=== PATIENT | female | born 1980 | race Caucasian/White ===

== ENCOUNTER 2017-12-27 12:41 | Emergency (ER) | payer OTHER ==
[2017-12-27] MEDS ORDERED: NA CHLORIDE 0.9% 1,000 ML ONE ×2 (13:03→13:53)
[2017-12-27 13:20] LABS: Absolute Lymphocytes (CBC) 2.5 K/uL (0.7-4.9); Absolute Monocytes 0.5 K/uL (0.1-1.3); Absolute Neutrophil 2.4 K/uL (1.8-8.0); Basophils % 0.8 % (0-1.3); Eosinophils % 2.8 % (0-4.4); Hematocrit 39.1 % (36.0-45.0); Lymphocytes % 44.5 % (15.3-44.8); MCH 28.9 pg (27.0-35.0); MCV 86.7 fL (80-100); MPV 8.7 fL (7.6-11.3); Monocytes % 8.2 % (3.3-12.3); RBC Red Blood Cell Count 4.51 M/uL (3.86-4.86)
[2017-12-27 13:29] LABS: Potassium 3.7 mEq/L (3.6-5.0)
[2017-12-27 13:32] LABS: Albumin 3.8 g/dL (3.2-5.5); Bilirubin Total 0.3 mg/dL (0.3-1.2); Protein, Total 6.9 g/dL (6.0-8.3)
[2017-12-27 13:35] LABS: Urine Bacteria <20 /HPF (<20); Urine Culture Reflex Order NOT NEEDED; Urine RBC <5 /HPF (NONE SEEN)
[2017-12-27 13:39] LABS: Urine Blood NEGATIVE (NEG); Urine Glucose NEGATIVE (NEG); Urine Protein NEGATIVE (NEG); Urine Specific Gravity 1.025 (1.005-1.030); Urine pH 5.5 (5.0-7.0)
--- NOTE | 2017-12-27 15:05 | EDPHYS ---
Physician Documentation [facility] Name: Melissa Berrios Age: 37 yrs Sex: Female : 1980 Arrival Date: 12/27/2017 Time: 12:42 Bed 8 Private MD: ED Physician Jae Benjamin HPI: 12/27 14:34 This 37 yrs old Female presents to ER via Ambulatory with complaints of Heat gs Exposure. 14:34 The patient presents to the emergency department with weakness of the entire body, gs generalized weakness. Onset: The symptoms/episode began/occurred yesterday. Context: working outside overheated, generalized muscle ache dark urine ? fever. Associated signs and symptoms: Pertinent negatives: altered mental status. Severity of symptoms: At their worst the symptoms were severe in the emergency department the symptoms have improved markedly. Patient's baseline: Neuro: alert and fully oriented, Motor: no deficits, Ambulation: walks without assistance, Speech: normal. 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 - Social history:: Smoking status: Patient uses tobacco products, smokes one-half pack cigarettes per day, Patient/guardian denies using alcohol, street drugs. - Ebola Screening: : Patient negative for fever greater than or equal to 101.5 degrees Fahrenheit, and additional compatible Ebola Virus Disease symptoms Patient denies exposure to infectious person Patient denies travel to an Ebola-affected area in the 21 days before illness onset No symptoms or risks identified at this time. ROS: 14:34 All other systems are negative. gs Exam: 14:34 Head/Face: Normocephalic, atraumatic. Eyes: Pupils equal round and reactive to light, gs extra-ocular motions intact. Lids and lashes normal. Conjunctiva and sclera are non-icteric and not injected. Cornea within normal limits. Periorbital areas with no swelling, redness, or edema. ENT: Nares patent. No nasal discharge, no septal abnormalities noted. Tympanic membranes are normal and external auditory canals are clear. Oropharynx with no redness, swelling, or masses, exudates, or evidence of obstruction, uvula midline. Mucous membranes moist. Neck: Trachea midline, no thyromegaly or masses palpated, and no cervical lymphadenopathy. Supple, full range of motion without nuchal rigidity, or vertebral point tenderness. No Meningismus. Chest/axilla: Normal chest wall appearance and motion. Nontender with no deformity. No lesions are appreciated. Cardiovascular: Regular rate and rhythm with a normal S1 and S2. No gallops, murmurs, or rubs. Normal PMI, no JVD. No pulse deficits. Respiratory: Lungs have equal breath sounds bilaterally, clear to auscultation and percussion. No rales, rhonchi or wheezes noted. No increased work of breathing, no retractions or nasal flaring. Abdomen/GI: Soft, non-tender, with normal bowel sounds. No distension or tympany. No guarding or rebound. No evidence of tenderness throughout. Back: No spinal tenderness. No costovertebral tenderness. Full range of motion. Skin: Warm, dry with normal turgor. Normal color with no rashes, no lesions, and no evidence of cellulitis. MS/ Extremity: Pulses equal, no cyanosis. Neurovascular intact. Full, normal range of motion. Neuro: Awake and alert, GCS 15, oriented to person, place, time, and situation. Cranial nerves II-XII grossly intact. Motor strength 5/5 in all extremities. Sensory grossly intact. Cerebellar exam normal. Normal gait. 14:34 Constitutional: The patient appears alert, awake. Vital Signs: 12:46 BP 122 / 85; Pulse 92; Resp 18; Temp 99.9(O); Pulse Ox 98% on R/A; Weight 72.57 kg; ch Height 5 ft. 4 in. (162.56 cm); Pain 0/10; 15:17 BP 126 / 92; Pulse 79; Resp 18; Pulse Ox 99% ; sv 12:46 Body Mass Index 27.46 (72.57 kg, 162.56 cm) ch MDM: 12:57 Patient medically screened. gs 14:34 Data reviewed: vital signs, nurses notes. Response to treatment: the patient's symptoms gs have resolved after treatment, patient is well hydrated. and as a result, I will discharge patient. ED course: ddx dehydration, rhabdo, electrolyte abnormality. 12/27 12:58 Order name: CBC with Diff; Complete Time: 13:32 12/27 12:58 Order name: CMP; Complete Time: 13:43 12/27 12:58 Order name: Urine Microscopic Only; Complete Time: 13:43 12/27 12:58 Order name: CPK; Complete Time: 13:43 12/27 13:30 Order name: Urine Dipstick--Ancillary (enter results); Complete Time: 13:43 12/27 13:30 Order name: Urine --Ancillary (enter results); Complete Time: 13:43 12/27 12:58 Order name: Urine Test (obtain specimen); Complete Time: 13:24 12/27 12:58 Order name: Urine Dipstick-Ancillary (obtain specimen); Complete Time: 13:24 Administered Medications: 13:13 Drug: NS 0.9% 1000 ml Route: IV; Rate: 1 bolus; Site: right antecubital; sv 14:15 Follow up: Response: No adverse reaction; IV Status: Completed infusion; IV Intake: sv 1000ml 14:15 Drug: NS 0.9% 1000 ml Route: IV; Rate: 1 bolus; Site: right antecubital; sg 15:00 Follow up: Response: No adverse reaction; IV Status: Completed infusion; IV Intake: sv 1000ml Disposition: 12/27/17 15:04 Discharged to Home. Impression: Heat exhaustion, unspecified, Dehydration. - Condition is Stable. - Discharge Instructions: Heat-Related Illness, Dehydration, Adult, [id number]. - Work release form, Medication Reconciliation Form, Thank You Letter, Antibiotic Education, Prescription Opioid Use form. - Follow up: Private Physician; When: 2 - 3 days; Reason: Re-evaluation by your physician. Signatures: Dispatcher MedHo Carolina Michaels RN RN ch Verde, Stephanie, RN RN sv Gay, Steven, RN RN sg Starr, Gregory, MD MD gs Corrections: (The following items were deleted from the chart) 15:18 15:04 12/27/2017 15:04 Discharged to Home. Impression: Heat exhaustion, unspecified; sv Dehydration. Condition is Stable. Forms are Medication Reconciliation Form, Thank You Letter, Antibiotic Education, Prescription Opioid Use. Follow up: Private Physician; When: 2 - 3 days; Reason: Re-evaluation by your physician. gs
--- NOTE | 2017-12-27 15:05 | ER ---
Nurse's Notes [facility] Name: Melissa Berrios Age: 37 yrs Sex: Female : 1980 Arrival Date: 12/27/2017 Time: 12:42 Bed 8 Private MD: Diagnosis: Heat exhaustion, unspecified;Dehydration Presentation: 12/27 12:45 Presenting complaint: Patient states: I think I got overheated yesterday. 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 my skin feels like its on fire and I don't feel very good. denies nvd or LOPEZ. Transition of care: patient was not received from another setting of care. Onset of symptoms was December 26, 2017. Risk Assessment: Do you want to hurt yourself or someone else? Patient reports no desire to harm self or others. Initial Sepsis Screen: Does the patient meet any 2 criteria? No. Patient's initial sepsis screen is negative. Does the patient have a suspected source of infection? No. Patient's initial sepsis screen is negative. Care prior to arrival: ice pack. 12:45 Method Of Arrival: Ambulatory 12:45 Acuity: ZOE 4 Triage Assessment: 12:46 General: Appears in no apparent distress. comfortable, Behavior is calm, cooperative, ch appropriate for age. Pain: Denies pain. Derm: Skin is intact, Skin is diaphoretic, Skin is normal. 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 - Social history:: Smoking status: Patient uses tobacco products, smokes one-half pack cigarettes per day, Patient/guardian denies using alcohol, street drugs. - Ebola Screening: : Patient negative for fever greater than or equal to 101.5 degrees Fahrenheit, and additional compatible Ebola Virus Disease symptoms Patient denies exposure to infectious person Patient denies travel to an Ebola-affected area in the 21 days before illness onset No symptoms or risks identified at this time. Screenin:10 Abuse screen: Denies threats or abuse. Denies injuries from another. Nutritional sv screening: No deficits noted. Tuberculosis screening: No symptoms or risk factors identified. Fall Risk None identified. Assessment: 13:10 General: Appears in no apparent distress. comfortable, well developed, Behavior is sv calm, cooperative, appropriate for age. Pain: Denies pain. Neuro: Level of Consciousness is awake, alert, obeys commands, Oriented to person, place, time, situation, Moves all extremities. Full function Gait is steady, Speech is normal. Respiratory: Respiratory effort is even, unlabored, Respiratory pattern is regular, symmetrical. Derm: Skin is normal, Skin temperature is warm Reports "feeling hot". 15:17 Reassessment: Patient appears in no apparent distress at this time. Patient and/or sv family updated on plan of care and expected duration. Pain level reassessed. Patient is alert, oriented x 3, equal unlabored respirations, skin warm/dry/pink. Patient states feeling better. Patient states symptoms have improved. Vital Signs: 12:46 BP 122 / 85; Pulse 92; Resp 18; Temp 99.9(O); Pulse Ox 98% on R/A; Weight 72.57 kg; Height 5 ft. 4 in. (162.56 cm); Pain 0/10; 15:17 BP 126 / 92; Pulse 79; Resp 18; Pulse Ox 99% ; sv 12:46 Body Mass Index 27.46 (72.57 kg, 162.56 cm) ED Course: 12:42 Patient arrived in ED. as 12:46 Triage completed. 12:46 Arm band placed on left wrist. Patient placed in an exam room, on a stretcher. 12:50 Jae Benjamin MD is Attending Physician. 12:51 Loan Musa RN is Primary Nurse. sv 13:10 Patient has correct armband on for positive identification. Bed in low position. Call sv light in reach. Adult w/ patient. Pulse ox on. NIBP on. Door closed. Head of bed elevated. 13:13 Initial lab(s) drawn, by me, sent to lab. Inserted saline lock: 20 gauge in right sv antecubital area, using aseptic technique. Blood collected. Flushed right antecubital with 5 ml normal saline. 13:26 Awaiting lab results. sv 15:17 No provider procedures requiring assistance completed. IV discontinued, intact, sv bleeding controlled, No redness/swelling at site. Pressure dressing applied. Administered Medications: 13:13 Drug: NS 0.9% 1000 ml Route: IV; Rate: 1 bolus; Site: right antecubital; sv 14:15 Follow up: Response: No adverse reaction; IV Status: Completed infusion; IV Intake: sv 1000ml 14:15 Drug: NS 0.9% 1000 ml Route: IV; Rate: 1 bolus; Site: right antecubital; sg 15:00 Follow up: Response: No adverse reaction; IV Status: Completed infusion; IV Intake: sv 1000ml Intake: 14:15 IV: 1000ml; Total: 1000ml. sv 15:00 IV: 1000ml; Total: 2000ml. sv Outcome: 15:04 Discharge ordered by . 15:17 Discharged to home ambulatory, with family. sv 15:17 Condition: stable 15:17 Discharge instructions given to patient, Instructed on discharge instructions, follow up and referral plans. Demonstrated understanding of instructions, follow-up care. 15:18 Patient left the ED. sv Signatures: Carolina Mckeon RN RN Loan Musa RN RN sv Gay, Steven, RN RN sg Martinez, Amelia as Starr, Gregory, MD MD gs
== END 2017-12-27 15:18 | disposition home or self-care (01) ==
LOC: ER 12:41
DX: E86.0 Dehydration (principal); F17.210 Nicotine dependence, cigarettes, uncomplicated
CPT/HCPCS: 36415; 80053; 81003; 81015; 81025; 82550; 85025; 96360; 96361; 99284; J7030

== ENCOUNTER 2020-01-12 19:34 | Emergency (ER) | payer OTHER ==
--- OUTSIDE RECORDS SUMMARY | 2020-01-12 19:38 | XMS REPORT | Summary of Care ---
:1980 Author Organization [facility] - [facility] Address [address] [place] [id number] Care Team Providers Name Role Phone Pcp, Patient Does Not Have A Primary Care Provider +[id number] Reason for Referral (Routine) Status Reason Specialty Diagnoses / Referred By Referred To Procedures Contact Contact New Request IM-CARDIOVASCULA Diagnoses Chest pain, unspecified type Chacho Godfrey R DISEASE Procedures Discharge Follow-Up: Specialty Service IM-CARDIOVASCULAR DISEASE; 3-[address] [place] [address] [address] [place] [address] Radiology Services (STAT) Status Reason Specialty Diagnoses / Referred By Referred To Procedures Contact Contact New Request Diagnostic Diagnoses Chest pain, unspecified type Chacho Godfrey Radiology Procedures Chest [address] [place] [address] [address] [place] [address] Reason for Visit Reason Comments Chest Pain Auth/Cert Status Reason Specialty Diagnoses / Referred By Referred To Procedures Contact Contact Emergency Medicine Diagnoses CHEST PAIN [facility] [address] [place] [address] Fax: Encounter Details Date Type Department Care Team Description 01/08/2020 Emergency ADC-Emergency Chacho Godfrey MD Chest pain, Department [address] [place] [address] unspecified type [address] [facility] [address] (Primary Dx) [place] [address] [place], [place] [id number] Allergies No Known Allergiesdocumented as of this encounter (statuses as of 01/08/2020) Medications Medication Sig Dispensed Refills Start Date End Date Status oseltamivir (TAMIFLU) Take 1 capsule by 10 capsule 0 7 Active 75 mg capsule mouth 2 (two) times daily. loratadine-pseudoephed Take 1 tablet by 10 tablet 0 07/14/2017 Active rine (CLARITIN-D 24 mouth daily. HOUR) 10-240 mg per 24 hr tablet documented as of this encounter (statuses as of 01/08/2020) Active Problems Not on filedocumented as of this encounter (statuses as of 01/08/2020) Social History Tobacco Use Types Packs/Day Years Used Date Never Smoker Smokeless Tobacco: Never Used Alcohol Use Drinks/Week oz/Week Comments Never Alcohol Habits Answer Date Recorded How often do you have a drink containing alcohol? Never 02/04/2019 How many drinks containing alcohol do you have on a typical Not asked day when you are drinking? How often do you have six or more drinks on one occasion? No t asked Sex Assigned at Date Recorded Not on file Job Start Date Occupation Industry Not on file Not on file Not on file Travel History Travel Start Travel End No recent travel history available. COVID-19 Exposure Response Date Recorded In the last month, have you been in contact with No / Unsure 01/08/2020 12:53 AM CDT someone who was confirmed or suspected to have Coronavirus / COVID-19? documented as of this encounter Last Filed Vital Signs Vital Sign Reading Time Taken Comments Blood Pressure 110/69 01/08/2020 3:00 AM CDT Pulse 85 01/08/2020 3:00 AM CDT Temperature 36.1 C (96.9 F) 01/08/2020 12:51 AM CDT Respiratory Rate 18 01/08/2020 3:00 AM CDT Oxygen Saturation 99% 01/08/2020 3:00 AM CDT Inhaled Oxygen Concentration - - Weight 80.3 kg (177 lb) 01/08/2020 12:52 AM CDT Height 162.6 cm (5' 4") 01/08/2020 12:51 AM CDT Body Mass Index 30.38 01/08/2020 12:51 AM CDT documented in this encounter Discharge Instructions InstructionsChacho Godfrey MD - 01/08/2020 RETURN FOR ANY QUESTIONS OR CONCERNS Today you were seen by Chacho Godfrey Jr., MD You were seen today for Chief Complaint Patient presents with Chest Pain Your ER diagnosis was ICD-10-CM ICD-9-CM 1. Chest pain, unspecified type R07.9 786.50 NO LIFE-THREATENING FINDINGS ON TODAY'S EXAM. YOUR PRESCRIPTIONS : Check out [employer] for medication discounts Medication List ASK your doctor about these medications loratadine-pseudoephedrine 10-240 mg per 24 hr tablet Commonly known as: CLARITIN-D 24 HOUR Take 1 tablet by mouth daily. oseltamivir 75 mg capsule Commonly known as: TAMIFLU Take 1 capsule by mouth 2 (two) times daily. ER precautions and follow up : 1. Return to ER if your symptoms should worsen or fail to improve within 72 hours. 2. The care provided in the emergency room was for acute problems only. 3. You should follow up with your primary care provider within 72 hours. 4. Fill and take all your medications as prescribed. 5. Make sure you are staying adequately hydrated. Busque attencion immediatamente si usted tiene los sitomas sigue, vuelve peor o si hay sitomas nuevas o para cualquiera preoccupacion incluyendo dolor del pecho, falta aire, se siente debile, mas fievre, mas dolor, nausea, vomitando, sangrando que no es normal, confusion, baja or pierdas conciencia. MAY FOLLOW-UP WITH A PROVIDER OF YOUR CHOICE, SUCH : 1. A PHYSICIAN OF YOUR CHOICE 2. [facility], . LOCATIONS IN [facility] 3. [facility], [address] [place] [address]; [phone] OR, IF YOU WISH TO FOLLOW-UP WITHIN THE [facility], MAY TRY THESE OPTIONS (CLINIC APPOINTMENTS AVAILABLE ON ILWD-LA-RIQR BASIS): 1. SCHEDULE AN APPOINTMENT ONLINE AT WWW.[facility] 2. OR CALL THE [facility] ACCESS CENTER AT OR 3. OR CALL YOUR [facility] PHYSICIAN'S OFFICE DIRECTLY IF YOU ARE ALREADY AN ESTABLISHED [facility] PATIENT. [facility] HEALTH RETURN TO WORK / SCHOOL EXCUSE Melissa Berrios WAS SEEN IN THE ER AND DISCHARGED 01/08/2020 TODAY, 3:50 AM & May return to Work / School / Incarceration on X with activity as tolerated indicated below. ___The following limitations apply until pt is seen by Physician and cleared to return to normal activity. _X_ Off for two days and return to activity as tolerated at work or school ___ No Sports ___ No work ___ Do not return until fever free for 24 hours. ___ No school CHACHO GODFREY Jr., MD [facility] EMERGENCY DEPRTMENT [address] [place] [address] [place] [address] ### The patient may have been given Narcotic pain medications during their stay in the ED that may show up on a Drug Screen. The hospital discharge paper work will identify these medications. AttachmentsThe following attachments cannot be sent through Care Everywhere. Chest Pain, Uncertain Cause (Upper Sor[place])documented in this encounter Plan of Treatment Name Type Priority Associated Diagnoses Date/Ti me Chest 1 View IMAGING STAT Chest pain, unspecified type 01/08/2020 1:13 AM CDT URINE CULTURE LAB STAT Chest pain, unspecified typ e 01/08/2020 1:29 AM CDT Name Type Priority Associated Diagnoses Order S chedule URINE CULTURE LAB KAY Chest pain, unspecified typ e KAY for 1 Occurrences starting 2019 until 01/08/2020 Health Maintenance Due Date Last Done Comments VARICELLA VACCINES (1 of 2 - 1982 2-dose childhood series) DTaP,Tdap,and Td Vaccines (1 - 1992 Tdap) PAP SMEAR 2002 Depression Screening 02/26/2020 02/25/2019 INFLUENZA VACCINE (Season Ended) 2020 PNEUMOCOCCAL 0-64 YEARS COMBINED Aged Out No longer eligible based on SERIES patient's age to complete this topic documented as of this encounter Procedures Procedure Name Priority Date/Time Associated Diagnosis Comme nts TROPONIN I STAT 01/08/2020 3:06 Chest pain, Results for this AM CDT unspecified type procedure a re in the results section. ADC / C - DRUG STAT 01/08/2020 1:29 Chest pain, Results for this SCREEN TRIAGE AM CDT unspecified type procedure are in the results section. URINALYSIS STAT 01/08/2020 1:29 Chest pain, Results for this AM CDT unspecified type procedure a re in the results section. XR CHEST 1 VW STAT 01/08/2020 1:13 Chest pain, AM CDT unspecified type Procedure Note - [facility], Radia nt Results Inft User - 01/08/2020 1:17 AM CDT EXAM: XR CHEST 1 VW COMPARISON: None. TECHNIQUE: A single AP radio graph of the of the chest was obtained. HISTORY: chest pain FINDINGS: Lungs: The lungs are clear. No pleural effusion or pneumothorax is identified. Heart/Mediastinum: The cardi omediastinal silhouette is normal in size. Bones: No acute osseous abno rmality is seen. IMPRESSION No acute cardiopulmonary abn ormality. Preliminary Report Dictated by Resident: Enoch Martinez Ikwuagwu POCT TEST KAY 01/08/2020 1:06 Chest pain, Resu lts for this AM CDT unspecified type procedure a re in the results section. CBC WITH STAT 01/08/2020 1:02 Chest pain, Results for this DIFFERENTIAL AM CDT unspecified type procedure a re in the results section. N-TERMINAL PRO-BNP STAT 01/08/2020 1:02 Chest pain, Resul ts for this AM CDT unspecified type procedure a re in the results section. ACTIVATED PARTIAL STAT 01/08/2020 1:02 Chest pain, Result s for this THRMPLAS CISCO AM CDT unspecified type procedure a re in the results section. D-DIMER STAT Add-On 01/08/2020 1:02 Chest pain, Results for this AM CDT unspecified type procedure a re in the results section. PROTHROMBIN TIME / STAT 01/08/2020 1:02 Chest pain, Resul ts for this INR AM CDT unspecified type procedure a re in the results section. CBC WITH Routine 01/08/2020 1:02 Chest pain, Results for this DIFFERENTIAL AM CDT unspecified type procedure a re in the results section. BASIC METABOLIC STAT 01/08/2020 1:02 Chest pain, Results for this PANEL (NA, K, CL, AM CDT unspecified type proced ure are in CO2, GLUCOSE, BUN, the resul ts CREATININE, CA) section. HEPATIC FUNCTION STAT 01/08/2020 1:02 Chest pain, Results for this PANEL ([id number]) AM CDT unspecified type procedure are in (ALB,T.PRO,BILI the results T,BU/BC,ALT,AST,ALK section. PHOS) TROPONIN I STAT 01/08/2020 1:02 Chest pain, Results for this AM CDT unspecified type procedure a re in the results section. LIPASE STAT 01/08/2020 1:02 Chest pain, Results for this AM CDT unspecified type procedure a re in the results section. EKG-12 LEAD STAT 01/08/2020 12:52 AM CDT NOTICE OF PRIVACY Routine 01/08/2020 12:46 PRACTICES AM CDT CONSENT/REFUSAL FOR Routine 01/08/2020 12:46 DIAGNOSIS AND AM CDT TREATMENT documented in this encounter Results TROPONIN I (01/08/2020 3:06 AM CDT) Pathologist Sig nature TROPONIN I <0.012 <=0.034 ng/mL [facility] Specimen Blood - VENOUS Narrative Performed At Equal or Less than 0.034 ng/ml---Normal [facility] Note: Cardiac troponin begins to rise 3-4 hours after the onset of ischemia. Repeat in 4-6 hours if the sample was drawn within 3-4 hours of the onset of the symptom and found normal. Between 0.035 and 0.120 ng/mL--- Borderline. Questionable myocardial injury or necros is Note: Serial measurement may be necessary to confirm or exclude the diagnosis of myocardial injury or necrosis; Clinical correlation (symptoms, EKGs, imaging studies, and others) required; Repeat in 4-6 hours if clinically indicated. Equal or Higher than 0.121 ng/mL---Abnormal. Myocardial Injury or Necrosis Likely Biotin has been reported to cause a negative bias, interpret results relative to patient's use of biotin. Performing Organization Address City/State/Zipcode Phone Number [facility] CLIA: [id number], [address] [place], [place] [address] URINALYSIS (01/08/2020 1:29 AM CDT) Pathologist Sig nature APPEARANCE Clear Clear [facility] COLOR Yellow Yellow [facility] PH 5.0 4.8 - 8.0 [facility] SP GRAVITY 1.037 (H) 1.003 - 1.030 [facility] GLU U QUAL 500 mg/dL (A) Normal [facility] BLOOD Negative Negative [facility] KETONES Negative Negative [facility] PROTEIN Negative Negative [facility] UROBILIN Normal Normal [facility] BILIRUBIN Negative Negative [facility] NITRITE Negative Negative [facility] LEUK ALVARO Negative Negative [facility] RBC/HPF <1 0 - 3 HPF [facility] WBC/HPF 1 0 - 5 HPF [facility] BACTERIA Negative Negative [facility] MUCOUS Slight (A) Negative LPF [facility] SQ EPITH 2 HPF [facility] YEAST BUD 1 <=1 HPF [facility] Specimen Urine - URINE, CLEAN CATCH Performing Organization Address [facility]/State/Zipcode Phone Number [facility] CLIA: [id number], [address] [place] [address] ADC / LCC - DRUG SCREEN TRIAGE (01/08/2020 1:29 AM CDT) BENZO U Negative Negative [facility] JESSICA U Negative Negative [facility] AMPHET Presumptive Negative [facility] Positive (A) HOSPITAL LABORATORY THC Negative Negative [facility] METHADONE Negative Negative [facility] Meth U Negative Negative [facility] OPIATES Negative Negative [facility] Cocaine Metabolite Negative Negative [facility] PROPOXY Negative Negative [facility] Tric U Negative Negative [facility] PCP Negative Negative [facility] OXYCOD Negative Negative [facility] Specimen Urine - URINE, CLEAN CATCH Narrative Performed At Urine Drug Cutoff Ranges [facility] Benzodiazepines: 150 ng/mL Barbiturates: 200 ng/mL Amphetamine: 500 ng/mL Cannabinoids: 50 ng/mL Methadone: 200 ng/mL Methamphetamine: 500 ng/mL Opiates: 100 ng/mL or 2000 ng/mL Cocaine: 150 ng/mL Propoxyphene: 300 ng/mL Tricyclics: 300 ng/mL Oxycodone: 100 ng/mL PCP: 25 ng/mL The results are to be used only for medical (i.e., treatment) purposes. Unconfirmed screening results must not be used for non-medical purposes (e.g., employment testing, legal testing). Performing Organization Address City/[facility]/Zipcode Phone Number [facility] CLIA: [id number], [address] [place], [place] [address] POCT TEST (01/08/2020 1:06 AM CDT) Pathologist Sig nature POCT PREG negative On board controls acceptable positive with C Line POCT PREG LOT # [id number] POCT PREG TEST DATE 04-21-2021 Specimen Urine - URINE, CLEAN CATCH D-DIMER (01/08/2020 1:02 AM CDT) [facility] Sig [facility] D-DIMER <0.27 <0.41 g/mL (FEU) [facility] Specimen Blood - VENOUS Narrative Performed At This test may be used in conjunction with a [facility] clinical pretest probability (PTP) assessment model to exclude venous thromboembolism (VTE) in patients suspected of deep venous thrombosis (DVT) and pulmonary embolism (PE) A D-Dimer value less than 0.50 g/ml (FEU) has a negative predicative value of 96 to 100% (95% CI)and 97 to 100% (95% CI) as an aid in the diagnosis of deep vein thrombosis (DVT) and pulmonary embolism when there is low or moderate pretest probability of PE or DVT. D-Dimer values are expressed in initial fibrinogen equivalent units (FEU)" The assay results should be used with other information, including the clinical context, in forming a diagnosis. Performing Organization Address [facility]/Zipcode Phone Number [facility] CLIA: [id number], [address] [place], [place] [address] [address]AT[address] [facility] CBC WITH DIFFERENTIAL (01/08/2020 1:02 AM CDT) [facility] WBC 5.74 4.30 - 11.10 [facility] 10*3/L [facility] RBC 4.84 3.93 - 5.25 [facility] 10*6/L [facility] HGB 14.4 11.6 - 15.0 [facility] g/dL [facility] HCT 41.6 35.7 - 45.2 % [facility] MCV 86.0 80.6 - 95.5 fL [facility] MCH 29.8 25.9 - 32.8 pg [facility] MCHC 34.6 31.6 - 35.1 [facility] g/dL [facility] RDW-SD 35.6 (L) 39.0 - 49.9 fL [facility] RDW-CV 11.3 (L) 12.0 - 15.5 % [facility] PLT 277 166 - 358 [facility] 10*3/L [facility] MPV 11.0 9.5 - 12.9 fL [facility] NRBC/100 WBC 0.0 0.0 - 10.0 /100 [facility] WBCs [facility] NRBC x10^3 <0.01 10*3/L [facility] GRAN MAT (NEUT) % 42.0 % [facility] IMM GRAN % 0.20 % [facility] LYMPH % 47.2 % [facility] MONO % 7.3 % [facility] EOS % 2.6 % [facility] BASO % 0.7 % [facility] GRAN MAT x10^3(ANC) 2.41 1.88 - 7.09 [facility] 10*3/uL [facility] IMM GRAN x10^3 <0.03 0.00 - 0.06 [facility] 10*3/uL [facility] LYMPH x10^3 2.71 1.32 - 3.29 [facility] 10*3/uL [facility] MONO x10^3 0.42 0.33 - 0.92 [facility] 10*3/uL [facility] EOS x10^3 0.15 0.03 - 0.39 [facility] 10*3/uL HOSPITAL LABORATORY BASO x10^3 0.04 0.01 - 0.07 [facility] 10*3/uL [facility] Specimen Blood - VENOUS Performing Organization Address City/State/Zipcode Phone Number [facility] CLIA: [id number], [address] [place], [place] [address] N-TERMINAL PRO-BNP (01/08/2020 1:02 AM CDT) Pathologist Sig nature NT-proBNP 52 <=125 pg/mL [facility] Specimen Blood - VENOUS Narrative Performed At Biotin has been reported to cause a negative [facility] bias, interpret results relative to patient's use of biotin. Performing Organization Address City/[facility]/Zipcode Phone Number [facility] CLIA: [id number], [address] [place] [address] Prothrombin Time (PT) / INR (01/08/2020 1:02 AM CDT) PROTIME PATIENT 12.8 12.0 - 14.7 [facility] HOSPITAL LABORATORY INR 1.0Comment: Normal [facility] INR <1.1; Warfarin [facility] Therapeutic range LABORATORY 2.0 to 3.0 or 2.5 to 3.5, depending upon the indications. Specimen Blood - VENOUS Performing Organization Address [facility] Phone Number [facility] CLIA: [id number], [address] [place] [address] aPTT (01/08/2020 1:02 AM CDT) Pathologist Sig nature APTT Patient 27 23 - 38 Seconds [facility] Specimen Blood - VENOUS Narrative Performed At The [facility] patient population mean normal value [facility] for aPTT is 30 seconds. Performing Organization Address [facility] Phone Number [facility] CLIA: [id number], [address] [place] [address] Troponin I (01/08/2020 1:02 AM CDT) Pathologist Sig nature TROPONIN I <0.012 <=0.034 ng/mL [facility] Specimen Blood - VENOUS Narrative Performed At Equal or Less than 0.034 ng/ml---Normal [facility] Note: Cardiac troponin begins to rise 3-4 hours after the onset of ischemia. Repeat in 4-6 hours if the sample was drawn within 3-4 hours of the onset of the symptom and found normal. Between 0.035 and 0.120 ng/mL--- Borderline. Questionable myocardial injury or necros is Note: Serial measurement may be necessary to confirm or exclude the diagnosis of myocardial injury or necrosis; Clinical correlation (symptoms, EKGs, imaging studies, and others) required; Repeat in 4-6 hours if clinically indicated. Equal or Higher than 0.121 ng/mL---Abnormal. Myocardial Injury or Necrosis Likely Biotin has been reported to cause a negative bias, interpret results relative to patient's use of biotin. Performing Organization Address [facility] Phone Number [facility] CLIA: [id number], [address] [place] [address] Lipase Serum (01/08/2020 1:02 AM CDT) Pathologist [facility] LIPASE 51 0 - 220 U/L [facility] Specimen Blood - VENOUS Performing Organization Address [facility] Phone Number [facility] CLIA: [id number], [address] [place] [address] Hepatic Function Panel (ALB, T.PRO, BILI T, BU/BC, ALT, AST, ALK PHOS) (01/08/2020 1:02 AM CDT) [facility] TOTAL BILI 0.3 0.1 - 1.1 mg/dL [facility] BILI UNCON 0.5 0.1 - 1.1 mg/dL [facility] BILI CONJ 0.0 0.0 - 0.3 mg/dL [facility] T PROTEIN 7.4 6.3 - 8.2 g/dL [facility] ALBUMIN 4.2 3.5 - 5.0 g/dL [facility] ALK PHOS 87 34 - 122 U/L [facility] ALTv 12 5 - 35 U/L [facility] AST(SGOT) 15 13 - 40 U/L [facility] Specimen Blood - VENOUS Performing Organization Address [facility] Phone Number [facility] CLIA: [id number], [address] [place] [address] Basic Metabolic Panel (NA, K, CL, CO2, GLUCOSE, BUN, CREATININE, CA) (01/08/2020 1:02 AM CDT) Pathologist [facility] [employer] NA 133 (L) 135 - 145 [facility] mmol/L HOSPITAL LABORATORY K 3.6 3.5 - 5.0 [facility] mmol/L [facility] CL 101 98 - 108 mmol/L [facility] CO2 TOTAL 25 23 - 31 mmol/L [facility] AGAP 7 2 - 16 [facility] BUN 10 7 - 23 mg/dL [facility] GLUCOSE 330 (H) 70 - 110 mg/dL [facility] CREATININE 0.50 0.50 - 1.04 [facility] mg/dL [facility] CALCIUM 8.9 8.6 - 10.6 [facility] mg/dL [facility] eGFR Calculation 138.1 mL/min/1.73m2 [facility] ([facility] [employer]) eGFR Calculation 167.4 mL/min/1.73m2 [facility] () [facility] Specimen Blood - VENOUS Narrative Performed At Association of Glomerular Filtration Rate (GFR) [facility] and Staging of Kidney Disease* + + +- + | GFR (mL/min/1.73 m2) | With Kidney Damage | Without Kidney Damage + + +- + | >90 | Stage one | Normal + + +- + | 60-89 | Stage two | Decreased GFR + + +- + | 30-59 | Stage three | Stage three + + +- + | 15-29 | Stage four | Stage four + + +- + | <15 (or dialysis) | Stage five | Stage five + + +- + *Each stage assumes the associated GFR level has been in effect for at least three months. Stages 1 to 5, with or without kidney disease, indicate chronic kidney disease. Notes: Determination of stages one and two (with eGFR >59mL/min/1.73 m2) requires estimation of kidney damage for at least three months as defined by structural or functional abnormalities of the kidney, manifested by either: Pathological abnormalities or Markers of kidney damage (including abnormalities in the composition of the blood or urine or abnormalities in imaging tests). Performing Organization Address City/State/Zipcode Phone Number [facility] CLIA: [id number], [address] [address] 15 [facility] documented in this encounter Visit Diagnoses Diagnosis Chest pain, unspecified type - Primary documented in this encounter documented as of this encounter
--- OUTSIDE RECORDS SUMMARY | 2020-01-12 19:38 | XMS REPORT | Continuity of Care Document ---
:1980 Author Organization [facility] t Address [address] [place] [address] Dr. Villanueva. [address] [place] [id number] Care Team Providers Name Role Phone Jesús MALIK Attending Clinician Mauro NICHOLS S Attending Clinician Problems This patient has no known problems. Allergies, Adverse Reactions, Alerts This patient has no known allergies or adverse reactions. Medications This patient has no known medications. Procedures This patient has no known procedures. Encounters Start End Encounter Admission Attending Care Care Encounter Source Date/Time Date/Time Type Type Clinicians Facility Department ID 2020-01-08 2020-01-08 Emergency [facility] [id number] 00:46:24 03:58:00 [place] [id number] [place] [id number] [place] [id number] 2019-03-05 2019-03-05 [facility] [id number] 00:00:00 00:00:00 (Out) [facility] [id number] Surgical [id number] [facility] [id number] Sarah Schwartz 2019-03-05 2019-03-05 [facility] [id number] 00:00:00 00:00:00 (Out) [facility] [id number] Surgical [id number] [facility] [id number] es [address] [place] 2019-02-25 2019-02-25 [facility] [id number] 13:36:54 13:51:54 Visit [facility] [id number] Surgical [id number] [facility] [id number] [address] [place] 2019-02-25 2019-02-25 Letter Mauro [facility] [id number] 00:00:00 00:00:00 (Out) [facility] [id number] Surgical [id number] [facility] [id number] [address] [place] Results This patient has no known results.
[2020-01-12 20:55] LABS: Absolute Lymphocytes (CBC) 2.6 K/uL (0.7-4.9); Basophils % 0.6 % (0-1.3); Hematocrit 42.6 % (36.0-45.0); Lymphocytes % 37.8 % (15.3-44.8); MPV 10.4 fL (7.6-11.3)
[2020-01-12 21:09] LABS: Protime INR 0.91
[2020-01-12] MEDS ORDERED: NA CHLORIDE 0.9% 1,000 ML ONE ×2 (21:15→21:59)
[2020-01-12 21:27] LABS: ALT/SGPT 15 U/L (12-78); AST/SGOT 8 U/L (15-37); Albumin 3.4 g/dL (3.4-5.0); Alkaline Phosphatase 97 U/L (45-117); BUN Blood Urea Nitrogen 19 mg/dL (7-18); Bicarbonate 26 mmol/L (21-32); Bilirubin Direct < 0.1 mg/dL (0-0.2); Bilirubin Total 0.1 mg/dL (0.2-1.0); Lipase 123 U/L (73-393); NT PRO-BNP 21 pg/mL (<125); Protein, Total 6.9 g/dL (6.4-8.2); Sodium Level 131 mmol/L (136-145); Thyroid Stimulating Hormone 0.856 uIU/mL (0.360-3.740); Troponin (Emerg Dept Use Only) < 0.02 ng/mL (0.0-0.045)
[2020-01-12 21:28] LABS: Glucose Level 592 mg/dL (74-106)
[2020-01-12 22:05] LABS: Urine Blood NEGATIVE (NEG); Urine Glucose 2+ (NEG); Urine Protein NEGATIVE (NEG); Urine Specific Gravity 1.015 (1.005-1.030)
--- NOTE | 2020-01-13 00:59 | ER ---
Nurse's Notes [facility] Name: Melissa Berrios Age: 39 yrs Sex: Female : 1980 Arrival Date: 01/12/2020 Time: 19:44 Bed 19 Private MD: Diagnosis: Diabetes mellitus due to underlying condition with hyperglycemia Presentation: 01/11 19:57 Chief complaint: Patient states: "I got diagnosed with Diabetes today. Was prescribed ca1 insulin and Metformin. Checked my blood sugar it said 500. I gave myself a shot of insulin, an hour after I recheck it says HI. I am newly diagnosed and I don't know what to do" BGL HI at triage. Coronavirus screen: Proceed with normal triage. Patient denies a cough. Patient denies shortness of breath or difficulty breathing. Patient denies measured and/or subjective temperature greater than 100.4F prior to today's visit. Patient denies travel on a cruise ship or to a country the [facility] currently lists as an affected area. Patient denies contact with known and/or suspected case of COVID-19. Ebola Screen: Patient negative for fever greater than or equal to 101.5 degrees Fahrenheit, and additional compatible Ebola Virus Disease symptoms Patient denies exposure to infectious person. Patient denies travel to an Ebola-affected area in the 21 days before illness onset. No symptoms or risks identified at this time. Initial Sepsis Screen: Does the patient meet any 2 criteria? No. Patient's initial sepsis screen is negative. Does the patient have a suspected source of infection? No. Patient's initial sepsis screen is negative. Risk Assessment: Do you want to hurt yourself or someone else? Patient reports no desire to harm self or others. Onset of symptoms was January 12, 2020. 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 - Social history:: Smoking status: Patient reports the use of cigarette tobacco products, smokes one-half pack cigarettes per day. Screenin:12 Abuse screen: Denies threats or abuse. Nutritional screening: No deficits noted. ea Tuberculosis screening: No symptoms or risk factors identified. Fall Risk None identified. Assessment: 20:17 General: Appears in no apparent distress. Behavior is calm, cooperative, appropriate ea for age. Pain: Denies pain. Neuro: Level of Consciousness is awake, alert, obeys commands, Oriented to person, place, time, situation. Cardiovascular: Patient's skin is warm and dry. Respiratory: Airway is patent Respiratory effort is even, unlabored, Respiratory pattern is regular, symmetrical. Derm: Skin is pink, warm \\T\\ dry. 21:32 Reassessment: Patient and/or family updated on plan of care and expected duration. Pain ea level reassessed. Patient is alert, oriented x 3, equal unlabored respirations, skin warm/dry/pink. 22:30 Reassessment: Patient and/or family updated on plan of care and expected duration. Pain ea level reassessed. Patient is alert, oriented x 3, equal unlabored respirations, skin warm/dry/pink. 01/12 00:26 Reassessment: Patient and/or family updated on plan of care and expected duration. Pain ea level reassessed. Patient is alert, oriented x 3, equal unlabored respirations, skin warm/dry/pink. 00:52 Reassessment: Patient and/or family updated on plan of care and expected duration. Pain ea level reassessed. Patient is alert, oriented x 3, equal unlabored respirations, skin warm/dry/pink. 01:16 Reassessment: Patient and/or family updated on plan of care and expected duration. Pain ea level reassessed. Patient is alert, oriented x 3, equal unlabored respirations, skin warm/dry/pink. Discharge instruction given to patient, verbalized the understanding of instruction. Pt left ED ambulatory accompanied by family. Pt tolerating well. Vital Signs: 01/11 19:57 BP 129 / 99; Pulse 78; Resp 16 S; Temp 97.4(TE); Pulse Ox 100% on R/A; Weight 68.04 kg ca1 (R); Height 5 ft. 4 in. (162.56 cm) (R); Pain 0/10; 20:15 BP 130 / 79; Pulse 66; Resp 18; Pulse Ox 100% ; ea 22:00 BP 110 / 84; Pulse 74; Resp 18; Pulse Ox 99% on R/A; ea 23:00 BP 101 / 83; Pulse 60; Resp 18; Pulse Ox 99% on R/A; ea 01/12 00:09 BP 107 / 83; Pulse 61; Resp 18; Pulse Ox 98% on R/A; ea 01:00 BP 116 / 78; Pulse 60; Resp 18; Temp 97.6; Pulse Ox 98% ; ea 01/11 19:57 Body Mass Index 25.75 (68.04 kg, 162.56 cm) ca1 ED Course: 01/11 19:44 Patient arrived in ED. ag3 20:01 Triage completed. ca1 20:02 Arm band placed on right wrist. ca1 20:12 Nkechi Hickey, RN is Primary Nurse. ea 20:12 Patient has correct armband on for positive identification. Bed in low position. Call ea light in reach. 20:24 Luzmaria Zeng FNP-C is PHCP. snw 20:24 Han Rivas MD is Attending Physician. snw 22:18 XRAY Chest (1 view) In Process Unspecified. EDMS 01/12 01:10 IV discontinued, intact, bleeding controlled, No redness/swelling at site. Pressure ea dressing applied. 01:17 No provider procedures requiring assistance completed. ea Administered Medications: 01/11 21:00 Drug: NS 0.9% 1000 ml Route: IV; Rate: 1 bolus; Site: left antecubital; ea 22:27 Follow up: Response: No adverse reaction; IV Status: Completed infusion; IV Intake: ea 1000ml 21:59 Drug: NS 0.9% 1000 ml Route: IV; Rate: 1 bolus; Site: left antecubital; ea 23:46 Follow up: Response: No adverse reaction; IV Status: Completed infusion; IV Intake: ea 1000ml Intake: 22:27 IV: 1000ml; Total: 1000ml. ea 23:46 IV: 1000ml; Total: 2000ml. ea Outcome: 01/12 00:59 Discharge ordered by . snw 01:17 Discharged to home ambulatory, with family. ea 01:17 Condition: stable 01:17 Discharge instructions given to patient, Instructed on discharge instructions, follow up and referral plans. Demonstrated understanding of instructions, follow-up care. 01:18 Patient left the ED. royer Signatures: Dispatcher [employer] EDLuzmaria Stroud, GRINDER OPERATOR EXTERNAL TOOL-C GRINDER OPERATOR EXTERNAL TOOL-Csnw Nkechi Hickey, RN RN Teresa Rod ag3 Lexie Smalls RN RN ca1 Corrections: (The following items were deleted from the chart) 01/11 20:05 19:57 Chief complaint: Patient states: "I got diagnosed with Diabetes today. Was ca1 prescribed insulin and Metformin. Checked my blood sugar it said 500. I gave myself a shot of insulin, an hour after I recheck it says HI. I am newly diagnosed and I don't know what to do" ca1
--- NOTE | 2020-01-13 00:59 | EDPHYS ---
Physician Documentation [facility] Name: Melissa Berrios Age: 39 yrs Sex: Female : 1980 Arrival Date: 01/12/2020 Time: 19:44 Bed 19 Private MD: ED Physician Han Rivas HPI: 01/11 21:20 This 39 yrs old Female presents to ER via Ambulatory with complaints of High snw Blood Sugar. 21:20 The patient or guardian reports generalized fatigue, hyperglycemia, polydipsia, snw polyphagia, polyuria, weight loss, that was potentially precipitated by no particular event. Onset: The symptoms/episode began/occurred gradually, 1 month(s) ago, and became persistent. Associated signs and symptoms: Pertinent positives: polydipsia, polyphagia, polyuria. Current symptoms: In the emergency department the patient's symptoms are unchanged from the initial presentation. The patient has not experienced similar symptoms in the past. The patient has been recently seen by a physician: the patient's primary care provider, Dr. Schmitt yesterday, with similar presenting complaints, started on Tresiba and Glucophage yesterday. 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 - Social history:: Smoking status: Patient reports the use of cigarette tobacco products, smokes one-half pack cigarettes per day. ROS: 21:19 Constitutional: Negative for fever, chills, positive for weight loss, fatigue Eyes: snw Negative for injury, pain, redness, and discharge, ENT: Negative for injury, pain, and discharge, Neck: Negative for injury, pain, and swelling, Cardiovascular: Negative for chest pain, palpitations, and edema, Respiratory: Negative for shortness of breath, cough, wheezing, and pleuritic chest pain, Abdomen/GI: Negative for abdominal pain, nausea, vomiting, diarrhea, and constipation, Back: Negative for injury and pain. 21:19 MS/Extremity: Negative for injury and deformity, Skin: Negative for injury, rash, and discoloration, Neuro: Negative for headache, weakness, numbness, tingling, and seizure. 21:19 : Positive for urinary frequency. Exam: 21:18 Constitutional: This is a well developed, well nourished patient who is awake, alert, snw and in no acute distress. Head/Face: Normocephalic, atraumatic. Eyes: Pupils equal round and reactive to light, extra-ocular motions intact. Lids and lashes normal. Conjunctiva and sclera are non-icteric and not injected. Cornea within normal limits. Periorbital areas with no swelling, redness, or edema. ENT: Nares patent. No nasal discharge, no septal abnormalities noted. Tympanic membranes are normal and external auditory canals are clear. Oropharynx with no redness, swelling, or masses, exudates, or evidence of obstruction, uvula midline. Mucous membranes moist. Neck: Trachea midline, no thyromegaly or masses palpated, and no cervical lymphadenopathy. Supple, full range of motion without nuchal rigidity, or vertebral point tenderness. No Meningismus. Chest/axilla: Normal chest wall appearance and motion. Nontender with no deformity. No lesions are appreciated. Cardiovascular: Regular rate and rhythm with a normal S1 and S2. No gallops, murmurs, or rubs. Normal PMI, no JVD. No pulse deficits. Respiratory: Lungs have equal breath sounds bilaterally, clear to auscultation and percussion. No rales, rhonchi or wheezes noted. No increased work of breathing, no retractions or nasal flaring. Abdomen/GI: Soft, non-tender, with normal bowel sounds. No distension or tympany. No guarding or rebound. No evidence of tenderness throughout. Back: No spinal tenderness. No costovertebral tenderness. Full range of motion. MS/ Extremity: Pulses equal, no cyanosis. Neurovascular intact. Full, normal range of motion. Neuro: Awake and alert, GCS 15, oriented to person, place, time, and situation. Cranial nerves II-XII grossly intact. Motor strength 5/5 in all extremities. Sensory grossly intact. Cerebellar exam normal. Normal gait. Psych: Awake, alert, with orientation to person, place and time. Behavior, mood, and affect are within normal limits. 21:18 Skin: Appearance: normal except for affected area, Color: normal in color, Temperature: cool, Moisture: dry. Vital Signs: 19:57 BP 129 / 99; Pulse 78; Resp 16 S; Temp 97.4(TE); Pulse Ox 100% on R/A; Weight 68.04 kg ca1 (R); Height 5 ft. 4 in. (162.56 cm) (R); Pain 0/10; 20:15 BP 130 / 79; Pulse 66; Resp 18; Pulse Ox 100% ; ea 22:00 BP 110 / 84; Pulse 74; Resp 18; Pulse Ox 99% on R/A; ea 23:00 BP 101 / 83; Pulse 60; Resp 18; Pulse Ox 99% on R/A; ea 01/12 00:09 BP 107 / 83; Pulse 61; Resp 18; Pulse Ox 98% on R/A; ea 01:00 BP 116 / 78; Pulse 60; Resp 18; Temp 97.6; Pulse Ox 98% ; ea 01/11 19:57 Body Mass Index 25.75 (68.04 kg, 162.56 cm) ca1 MDM: 01/11 20:41 Patient medically screened. snw 21:21 Data reviewed: vital signs, nurses notes. Data interpreted: Pulse oximetry: on room air snw is 100 %. Interpretation: normal. Counseling: I had a detailed discussion with the patient and/or guardian regarding: the historical points, exam findings, and any diagnostic results supporting the discharge/admit diagnosis, the presence of at least one elevated blood pressure reading (>120/80) during this emergency department visit, lab results, the need for further work-up and treatment in the hospital. 01/11 20:07 Order name: Glucose; Complete Time: 21:08 sg 01/11 20:17 Order name: Glucose, Ancillary Testing; Complete Time: 20:24 EDMS 01/11 20:40 Order name: Basic Metabolic Panel; Complete Time: 21:47 snw 01/11 20:40 Order name: CBC with Diff; Complete Time: 20:59 snw 01/11 20:40 Order name: LFT's; Complete Time: 21:47 snw 01/11 20:40 Order name: Magnesium; Complete Time: 21:47 snw 01/11 20:40 Order name: NT PRO-BNP; Complete Time: 21:47 w 01/11 20:40 Order name: PT-INR; Complete Time: 21:12 01/11 20:40 Order name: Troponin (emerg Dept Use Only); Complete Time: 21:47 01/11 20:40 Order name: Urine Culture 01/11 20:40 Order name: Urine Sodium Random; Complete Time: 21:41 w 01/11 20:40 Order name: Urine Osmolality; Complete Time: 22:00 01/11 20:40 Order name: Acetone, Serum; Complete Time: 21:47 w 01/11 20:40 Order name: Osmolality, Serum; Complete Time: 23:55 01/11 20:40 Order name: XRAY Chest (1 view) 01/11 20:40 Order name: EKG; Complete Time: 20:42 01/11 20:40 Order name: Cardiac monitoring; Complete Time: 21:26 01/11 20:40 Order name: EKG - Nurse/Tech; Complete Time: 21:26 01/11 20:40 Order name: IV Saline Lock; Complete Time: 20:43 01/11 20:40 Order name: Labs collected and sent; Complete Time: 21:31 01/11 20:40 Order name: O2 Per Protocol; Complete Time: 20:52 01/11 20:40 Order name: O2 Sat Monitoring; Complete Time: 20:52 01/11 20:40 Order name: Lipase; Complete Time: 21:47 01/11 20:40 Order name: Blood Culture Adult (2) 01/11 20:41 Order name: TSH; Complete Time: 21:47 w 01/11 21:34 Order name: Urine Dipstick--Ancillary (enter results); Complete Time: 22:31 sg 01/11 22:35 Order name: Glucose, Ancillary Testing; Complete Time: 22:40 EDMS 01/11 23:58 Order name: Glucose, Ancillary Testing; Complete Time: 23:59 EDMS Administered Medications: 21:00 Drug: NS 0.9% 1000 ml Route: IV; Rate: 1 bolus; Site: left antecubital; ea 22:27 Follow up: Response: No adverse reaction; IV Status: Completed infusion; IV Intake: ea 1000ml 21:59 Drug: NS 0.9% 1000 ml Route: IV; Rate: 1 bolus; Site: left antecubital; ea 23:46 Follow up: Response: No adverse reaction; IV Status: Completed infusion; IV Intake: ea 1000ml Disposition: 01/12 06:42 Co-signature as Attending Physician, Han Rivas MD. [email or web address] Disposition: 01/13/20 00:59 Discharged to Home. Impression: Diabetes mellitus due to underlying condition with hyperglycemia. - Condition is Stable. - Discharge Instructions: Diabetes and Sick Day Management, Hyperglycemic Hyperosmolar State, Form - Daily Diabetes Record, How and Where to Give Subcutaneous Insulin Injections, Child, Blood Glucose Monitoring, Adult, Rehydration, Adult. - Medication Reconciliation Form, Thank You Letter, Antibiotic Education, Prescription Opioid Use form. - Follow up: Emergency Department; When: As needed; Reason: Worsening of condition. Follow up: Private Physician; When: 2 - 3 days; Reason: Recheck today's complaints, Continuance of care, Re-evaluation by your physician. Signatures: Dispatcher [employer] EDMS Luzmaria Zeng, CASHIER SUPERVISOR-C CASHIER SUPERVISOR-Csnw Nkechi Hickey RN RN ea Acob, Cheryl, RN RN ca1 Holmes, Maurice, MD MD 7 Corrections: (The following items were deleted from the chart) 01:18 00:59 01/13/2020 00:59 Discharged to Home. Impression: Diabetes mellitus due to ea underlying condition with hyperglycemia. Condition is Stable. Forms are Medication Reconciliation Form, Thank You Letter, Antibiotic Education, Prescription Opioid Use. Follow up: Emergency Department; When: As needed; Reason: Worsening of condition. Follow up: Private Physician; When: 2 - 3 days; Reason: Recheck today's complaints, Continuance of care, Re-evaluation by your physician. snw
[2020-01-13 01:33] VITALS: O2SAT 98
[2020-01-13 01:34] VITALS: BP 116/78; TEMP 97.6
--- NOTE | 2020-01-13 07:29 | RAD REPORT ---
EXAM DESCRIPTION: RAD - Chest Single View - 01/12/2020 10:17 pm CLINICAL HISTORY: weight loss, shortness of breath, diabetes COMPARISON: July 2016 TECHNIQUE: AP portable chest image was obtained 01/12/2020 10:17 pm . FINDINGS: Lungs are clear. Heart and vasculature are normal. No measurable pleural effusion and no p neumothorax. No acute bony abnormality seen. No acute aortic findings suspected. IMPRESSION: No acute cardiopulmonary process. No suspicious change from comparison.
--- NOTE | 2020-01-13 09:59 | EKG ---
Test Date: 2020-01-12 Test Time: 21:11:42 Pest Control Pilot: SHYAM MEASUREMENT RESULTS: Intervals: Rate: 60 MS: 156 QRSD: 82 QT: 416 QTc: 416 Pender: P: 59 MS: 156 QRS: 63 T: 58 INTERPRETIVE STATEMENTS: Normal sinus rhythm Normal ECG No previous ECG available for comparison Electronically Signed On 01-13-20 09:59:00 CDT by Jomar Cotto
== END 2020-01-13 01:18 | disposition home or self-care (01) ==
LOC: ER 19:34
DX: E11.65 Type 2 diabetes mellitus with hyperglycemia (principal); Z79.4 Long term (current) use of insulin; F17.210 Nicotine dependence, cigarettes, uncomplicated
CPT/HCPCS: 96361; 93005; 87040 ×2; 87088; 85025; 87086; 80048; 36415; 82010; 83735; 82947 ×4; 85610; 84300; 80076; 84443; 81003; 84484; 83690; 83880; 83930; 83935; 71045; 96360; 99283; J7030 ×2